=== PATIENT | female | born 1990 | race Caucasian/White ===

== ENCOUNTER 2023-11-05 15:48 | Emergency (ER) | payer BC ==
[~2023-11-05] VITALS: Ht 170.2 cm; Wt 95.3 kg
[2023-11-05 16:20] VITALS: BP 98/73; PULSE 119; RESP 20; TEMP 102.2; O2SAT 98
[2023-11-05] MEDS ORDERED: IBUPROFEN 600 MG TAB PO ONE (16:30)
[2023-11-05] MEDS ORDERED: DEXAMETHASONE 10 MG/ML VIAL IM ONE (16:30)
[2023-11-05] MEDS ORDERED: IBUP-2213 PO (17:42)
[2023-11-05] MEDS ORDERED: AMOX500C25 PO (17:42)
[2023-11-05 18:05] LABS: FLU A ANTIGEN negative (NEGATIVE); FLU B ANTIGEN NEGATIVE (NEGATIVE)
[2023-11-05 18:12] VITALS: BP 116/73; PULSE 99; RESP 20; TEMP 100.1; O2SAT 98
== END 2023-11-05 18:12 | disposition home or self-care (01) ==
LOC: MED 15:48
DX: J03.80 Acute tonsillitis due to other specified organisms (principal); Z20.822 Contact with and (suspected) exposure to COVID-19; B96.89 Other specified bacterial agents as the cause of diseases classified elsewhere; Z79.899 Other long term (current) drug therapy
CPT/HCPCS: 87426; 87804; 96372; 99283; J1100